=== PATIENT | male | born 1995 | race Caucasian/White ===

== ENCOUNTER 2025-07-07 16:26 | Emergency (ER) | payer SELFPAY ==
[~2025-07-07] VITALS: Ht 172.7 cm; Wt 80.0 kg
[2025-07-07] MEDS: ZIPRASIDONE MESYLATE 20MG/VIAL IM ONE (17:00)
[2025-07-07] MEDS: DIPHENHYDRAMINE 50MG/ML VIAL IM ONE (17:00)
[2025-07-07 17:56] LABS: *AMPHETAMINES SCREEN URINE PRESUMPTIVE POSITIVE (NEGATIVE); *BARBITURATES SCREEN URINE NEGATIVE (NEGATIVE); *BENZODIAZEPINES SCREEN URINE PRESUMPTIVE POSITIVE (NEGATIVE); *COCAINE SCREEN URINE NEGATIVE (NEGATIVE); CANNABINOID URINE SCREEN PRESUMPTIVE POSITIVE (NEGATIVE); ECSTASY MDMA SCREEN URINE NEGATIVE (NEGATIVE); METHADONE URINE SCREEN NEGATIVE (NEGATIVE); OPIATES URINE SCREEN NEGATIVE (NEGATIVE); PHENCYCLIDINE URINE SCREEN NEGATIVE (NEGATIVE)
[2025-07-07 18:05] LABS: BASOPHILS % 0.3 % (0.0-2.0); EOSINOPHILS % 0.0 % (0.0-5.0); HEMATOCRIT. 39.5 % (42.0-52.0); HEMOGLOBIN. 13.5 g/dL (14.0-18.0); LYMPHOCYTES % 7.4 % (20.0-50.0); MEAN PLATELET VOLUME 7.6 fl (7.4-10.4); MONOCYTES % 7.7 % (2.0-8.0); NEUTROPHILS % 84.6 % (40.0-76.0); PLATELET 307 x1000/uL (130-400); RED BLOOD CELL COUNT 4.41 mill/uL (4.7-6.1); RED CELL DISTRIBUTION WIDTH 13.2 % (11.6-14.6)
[2025-07-07 18:20] VITALS: O2SAT 100
[2025-07-07 18:22] LABS: CREATININE 1.2 mg/dL (0.6-1.3)
[2025-07-07 18:23] LABS: UREA NITROGEN BLOOD 8 mg/dL (9-23)
[2025-07-07] MEDS: LORAZEPAM 2MG/ML UD SYRINGE IM SCH (20:30)
[2025-07-08 02:55] VITALS: BP 126/73; PULSE 91; RESP 19; TEMP 36.9; O2SAT 99
== END 2025-07-08 03:05 | disposition home or self-care (01) ==
LOC: ER 16:26
DX: R41.0 Disorientation, unspecified (principal); F17.200 Nicotine dependence, unspecified, uncomplicated; F15.90 Other stimulant use, unspecified, uncomplicated; R07.9 Chest pain, unspecified; Z20.822 Contact with and (suspected) exposure to COVID-19; Z79.899 Other long term (current) drug therapy
CPT/HCPCS: 80305; 80048; 80307; 80329; 80320; 85025; 36415; 93005; 96372; 99291; 87426; J1200; J2060; J3486; Z7610; G0480